=== PATIENT | female | born 1980 | race African-American/Black ===

== ENCOUNTER 2017-10-24 08:08 | Emergency (ER) | payer OTHER ==
[~2017-10-24] VITALS: Ht 154.9 cm; Wt 79.8 kg
[2017-10-24 08:17] VITALS: BP 125/76
== END 2017-10-24 08:34 | disposition home or self-care (01) ==
LOC: ER 08:09
DX: J06.9 Acute upper respiratory infection, unspecified (principal)
CPT/HCPCS: A4606; Z7610